=== PATIENT | female | born 1950 | race Caucasian/White ===

== ENCOUNTER → 2016-04-27 | Outpatient (CLI) | payer MEDICARE, BC ==
[~2016-04-27] MED LIST: ALTACE 10MG TAB10 MG PO; ALTACE 5MG5 MG PO; ASPI325T6 PO; ASPIRIN 81M81 MG/TA2 PO; CALCIUM 500 + D1 TA1 PO; DESYREL 100MG100 MG PO; DESYREL 50MG50 MG PO; EFFEXOR 75M75 MG/TAB PO; EFFEXOR XR75 MG/CAP PO; FERROUSAL325 MG PO; FOSAMAX 70MG TA70 MG PO; KLOR-CON M1010 MEQ PO; LASIX 20MG TABL20 MG PO; LEVEMIR100 U/ML SC; LEXAPRO 10MG10 MG PO; LEXAPRO20 MG PO; LIPITOR 80MG80 MG PO; MIRALAX PA17 GM/Dose PO; MULTIVITAMIN FO1 CAP PO; NITROSTAT0.4 MG/TAB SL; NORCO 325 MG-51 TAB PO; NOVOLOG 100U100 U/M1 SC; PERCOCET 325 MG1 TA2 PO; PERCOCET 325 MG1 TAB PO; PLAVIX 75MG TAB75 MG PO; SENNA8.6 MG PO; SYNTHROID0.1 MG/TAB PO; TAMOXIFEN CITRA20 MG PO; TOPROL XL 25MG25 MG PO; ZOFRAN 4MG T4 MG/TAB PO; ZOFRAN ODT4 MG PO
== END ==
LOC: MC.RAD 10:00
DX: Z12.31 Encounter for screening mammogram for malignant neoplasm of breast (principal); R92.1 Mammographic calcification found on diagnostic imaging of breast

== ENCOUNTER 2016-09-14 10:45 | Outpatient (RCR) | payer MEDICARE, BC | END 2016-09-16 | disposition still patient (30) | LOC: WSPT | DX: M75.102 Unspecified rotator cuff tear or rupture of left shoulder, not specified as traumatic (principal) | CPT/HCPCS: G8984-GP; G8986-GP ==

== ENCOUNTER 2016-09-28 10:45 | Outpatient (RCR) | payer MEDICARE, BC | END 2016-09-28 10:47 | disposition home or self-care (01) | LOC: WSPT 10:45 | DX: M75.102 Unspecified rotator cuff tear or rupture of left shoulder, not specified as traumatic (principal); Z79.4 Long term (current) use of insulin; Z85.3 Personal history of malignant neoplasm of breast ==

== ENCOUNTER → 2017-04-29 | Outpatient (CLI) | payer MEDICARE, BC | LOC: MC.RAD 08:20 | DX: Z12.31 Encounter for screening mammogram for malignant neoplasm of breast (principal); Z85.3 Personal history of malignant neoplasm of breast; Z98.890 Other specified postprocedural states ==

== ENCOUNTER → 2017-11-10 | Outpatient (CLI) | payer MEDICARE, BC | LOC: SUN.DIA 08:48 | DX: E11.9 Type 2 diabetes mellitus without complications (principal); E03.9 Hypothyroidism, unspecified; E66.9 Obesity, unspecified; F17.210 Nicotine dependence, cigarettes, uncomplicated | CPT/HCPCS: G0108 ==

== ENCOUNTER → 2017-11-24 | Outpatient (CLI) | payer MEDICARE, BC | LOC: SUN.DIA 11:05 | DX: E10.8 Type 1 diabetes mellitus with unspecified complications (principal); Z79.4 Long term (current) use of insulin; E66.9 Obesity, unspecified ==

== ENCOUNTER → 2018-05-19 | Outpatient (CLI) | payer MEDICARE, BC | LOC: MC.RAD 08:34 | DX: Z12.31 Encounter for screening mammogram for malignant neoplasm of breast (principal); Z85.3 Personal history of malignant neoplasm of breast; Z98.890 Other specified postprocedural states ==

== ENCOUNTER → 2019-05-31 | Outpatient (CLI) | payer MEDICARE, BC | LOC: MC.RAD 09:45 | DX: Z12.31 Encounter for screening mammogram for malignant neoplasm of breast (principal); Z90.11 Acquired absence of right breast and nipple ==

== ENCOUNTER → 2020-09-24 | Outpatient (CLI) | payer MEDICARE, BC | LOC: MC.RAD 10:23 | DX: Z12.31 Encounter for screening mammogram for malignant neoplasm of breast (principal); Z78.0 Asymptomatic menopausal state ==

== ENCOUNTER → 2021-11-12 | Outpatient (CLI) | payer MEDICARE, BC | LOC: MC.RAD 09:58 | DX: Z12.31 Encounter for screening mammogram for malignant neoplasm of breast (principal) ==

== ENCOUNTER 2022-07-21 13:10 | Emergency (ER) | payer MEDICARE, BC ==
[~2022-07-21] VITALS: Ht 162.6 cm; Wt 95.5 kg
[2022-07-21 15:35] VITALS: BP 174/70; PULSE 63
== END 2022-07-21 16:35 | disposition home or self-care (01) ==
LOC: COL.ER 13:10
DX: S40.011A Contusion of right shoulder, initial encounter (principal); S50.01XA Contusion of right elbow, initial encounter; S70.01XA Contusion of right hip, initial encounter; R51.9 Headache, unspecified; M54.6 Pain in thoracic spine; Z91.040 Latex allergy status; Z79.02 Long term (current) use of antithrombotics/antiplatelets; W10.9XXA Fall (on) (from) unspecified stairs and steps, initial encounter; W22.8XXA Striking against or struck by other objects, initial encounter; Y92.009 Unspecified place in unspecified non-institutional (private) residence as the place of occurrence of the external cause

== ENCOUNTER → 2023-12-06 | Outpatient (CLI) | payer MEDICARE, BC ==
[~2023-12-06] MED LIST changes: +ALTACE 2.5MG T2.5 MG PO; +BLINK GEL TEARS10 ML OU; +CALCIUM 600 PLU1 TAB PO; +COMPLETE MULTI1 TAB PO; +K-TAB10 PO; +LEVEMIR FLEX100 U/ML SQ; +NATURAL IRON65 MG PO; +NOVOLOG FLEX100 U/ML SQ; +OMEGA-3 1000 MG1 CAP PO; +ROXICODONE 55 MG/TAB PO; +SENOKOT S 50 MG1 TAB PO; +TOPROL XL100 MG PO
== END ==
LOC: MC.RAD 09:30
DX: Z12.31 Encounter for screening mammogram for malignant neoplasm of breast (principal)